=== PATIENT | female | born 1970 | race Caucasian/White ===

== ENCOUNTER → 2021-03-27 11:04 | Outpatient (CLI) | payer OTHER, SELFPAY ==
--- NOTE | ~2021-03-27 | XR_ITS ---
XR hip BI 2V w AP pelvis DATE: 03/27/2021 11:29 INDICATION: Bilateral hip pain TECHNIQUE: AP pelvis. AP and lateral views of each hip COMPARISON: None FINDINGS: Mild osteitis pubis. The pubic symphysis and sacroiliac joints are intact. Hip joint spaces are symmetric and well preserved. No pelvic fracture or bone destruction is detected. No fracture, dislocation, avascular necrosis or bone destruction of either hip. IMPRESSION: Mild osteoarthritis pubis Reviewed, dictated and finalized at location A. EED OIL BOILER IMPRESSION: Mild osteoarthritis pubis
== END ==
PROVIDERS: PCP Emergency Medicine; Visit Provider Emergency Medicine
DX: M16.0 Bilateral primary osteoarthritis of hip (principal)
CPT/HCPCS: 73521

== ENCOUNTER 2025-04-08 08:37 | Emergency (ER) | payer OTHER, SELFPAY ==
--- OUTSIDE RECORDS SUMMARY | 2025-04-08 08:39 | XMS_ITS | Clinical Summary ---
Author Organization [facility] Address [address] [address] Phone Care Team Providers Care Bone Char Operator Name Role Phone Unavailable Primary Care Provider Unavailabl e Allergies No known active allergies Medications cetirizine (ZYRTEC ALLERGY) 10 MG Tablet Take 10 mg by mouth daily. Active VIORELE 0.15-0.02/0.01 MG (13/09) Tablet Take 1 Tab by mouth daily. 04/27/2016 Active Active Problems No known active problems Family History Relation Name Status Comments Father Alive Mother Alive Social History Tobacco Use Types Packs/Day Years Used Date Smoking Tobacco: Never Smokeless Tobacco: Never Alcohol Use Standard Drinks/Week Comments Yes 4 (1 standard drink = 0.6 oz pur e alcohol) Comments No Sex and Gender Information Value Date Recorded Sex Assigned at Female 10/05/2023 8:07 AM CDT Legal Sex Female 7:40 PM CDT Gender Identity Female 10/05/2023 8:07 AM CDT Sexual Orientation Not on file Last Filed Vital Signs Vital Sign Reading Time Taken Comments Blood Pressure 124/82 05/12/2016 4:34 PM GRAIN SPOUTER Pulse 89 05/12/2016 4:34 PM GRAIN SPOUTER Temperature 36.6 C (97.8 F) 05/12/2016 4:34 PM GRAIN SPOUTER Respiratory Rate 18 05/12/2016 4:34 PM GRAIN SPOUTER Oxygen Saturation 99% 05/12/2016 4:34 PM GRAIN SPOUTER Inhaled Oxygen Concentration - - Weight 68.9 kg (152 lb) 05/12/2016 4:34 PM GRAIN SPOUTER Height 167.6 cm (5' 6) 05/12/2016 4:34 PM GRAIN SPOUTER Body Mass Index 24.53 05/12/2016 4:34 PM GRAIN SPOUTER Plan of Treatment Health Maintenance Due Date Last Done Comments Hepatitis C Virus (HCV) Screening 1970 TdaP Immunization 1970 Hepatitis B Immunization (1 of 3 - 19+ 3-dose series) 02/11/1991 HPV/Cotest 02/11/2002 Cervical Cancer Screening (CCS) 08/12/2016 Pap Smear 08/12/2016 08/12/2013 Cologuard 02/11/2017 Colonoscopy 02/11/2017 Colorectal Cancer Screening 02/11/2017 Immunochemical Fecal Occult Blood 02/11/2017 Pneumococcal Immunization (5 0+ years) (1 of 1 - PCV) 02/11/2022 Zoster Immunization (1 of 2) 02/11/2022 Influenza Immunization (#1) 2024 SARS-COV-2 Immunization (1 - season) 2024 Respiratory Syncytial Virus (RSV) Immunization (Adult) (1 - 1-dose 75+ series) 02/11/2047 Discussion re Starting/Frequency of Mammograms Discontinued 12/24/2015, 12/06/2014 Mammogram Discontinued 12/24/2015, 12/06/2014 Human Papillomavirus (HPV) Immunization Aged Out No longer eligible based on patient's age to complete this topic Meningococcal Immunization (ACWY) Aged Out No longer eligible based on patient's age to complete this topic Rotavirus Immunization Aged Out No lo nger eligible based on patient's age to complete this topic Procedures Procedure Name Priority Date/Time Associated Diagnosis Comments SAMMIE SCREENING TAVO W IMPL DIG ITAL W CAD Routine 12/24/2015 PATHOLOGY CYTOLOGY GYNECOLOGICAL ASSISTANT Routine 08/12/2013 from Last 3 Months or Most Recently Relevant to Health Maintenance Results * SAMMIE SCREENING TAVO W IMPL DIGITAL W CAD (12/24/2015) Anatomical Region Laterality Modality breast Bilateral Other us Librado Quintana MD IMG MAMMO ORDERABLES Final Result * PATHOLOGY CYTOLOGY GYNECOLOGICAL ASSISTANT (08/12/2013) Specimen of unknown material (specimen) us Ira Jaffe LOCAL DRIVER, TRAINING ASSISTANT PATHOLOGY/CYTOLOGY ORDERABLES Final Result from Last 3 Months or Most Recently Relevant to Health Maintenance
--- OUTSIDE RECORDS SUMMARY | 2025-04-08 08:39 | XMS_ITS | Clinical Summary ---
Author Organization [facility] Address [address] [place] [address] Care Team Providers Care Bioinformatics Technician Name Role Phone Rg Barry MD Primary Care Provider [phone] Isauro Juarez MD Unavailable [phone] Allergies No known active allergies Medications cetirizine (ZyrTEC) 10 mg tabletIndicatio ns:Allergic Rhinitis Take 1 tablet (10 mg total) by mouth every morning Active acetaminophen (TYLENOL) 325 mg tablet Take 2 tablets (650 mg total) by mouth every 6 (six) hours as needed for pain 60 tablet 4 Active phentermine (ADIPEX-P) 37.5 mg tablet Take 1 tablet (37.5 mg total) by mouth daily before breakfast 5 Active Active Problems Problem Noted Date Diagnosed Date DUB (dysfunctional uterine bleeding) 07/10/2024 Assessment & Plan (11/20/2024 3:16 PM CDT): No more bleeding since she stopped her pills No significant sx We preliminarily discussed HRT She will let me know how it goes. Assessment & Plan (07/10/2024 3:15 PM CDT): Has been controled with ocp To stop and use condoms as she could be menopausal To usg To fsh/lh/tsh If menopausal, will need btl. Well woman exam 07/10/2024 Overview (11/20/2024): Lab: Pap:04/15/2023, WNL Labs does with PCP Aruna: 10/09/2024, BIRADS 1:Negative Colonoscopy:08/04/2021, rpt 5-7 yrs BMD: Assessment & Plan (11/20/2024 3:03 PM CDT): Pap done. RTO 12m. I will send the results to the portal. If she has not heard in a week, to call the office. Assessment & Plan (07/10/2024 3:13 PM CDT): She has this scheduled. Fracture 09/15/2023 Pain associated with left breast implant 024 Assessment & Plan (08/24/2023 4:11 PM CDT): Patient presents today with marked swelling and slight discomfort in the left breast. I do have concern for a ruptured silicone breast implant. We are going to schedule her for left breast diagnostic mammogram and ultrasound. Further plan will be pending these results. She will follow up with my office if her pain worsens or intensifies. She will call with any further questions or concerns. Encounter for screening colonoscopy 03/03/2021 Overview (03/03/2021): Added automatically from request for surgery [id number] Herpes simplex virus (HSV) infection 09/09/2013 Overview (07/31/2016): HSV infection Immunizations Immunization Administration Dates Next Due Moderna SARS-CoV-2 Monovalent Vaccination (12+ Y RS) 06/15/2020 Surgical History Surgery Date Site/Laterality Comments ABDOMINOPLASTY 04/26/2006 - 04/25/2007 CERVICAL BIOPSY W/ LOOP ELECTRODE EXCISION 04/26/1998 - 04/25/1999 SECTION 04/26/1997 - 04/25/1998 SECTION 04/26/1999 - 04/25/2000 AUGMENTATION MAMMAPLASTY 04/26/2010 - 04/25/2011 Bilateral COLONOSCOPY last one 07/2021 Medical History Medical History Date Comments Hx Other Medical dysplasia Hx Other Medical 1997 ; Outc ome: 8 lb(s) 6 oz Female Hx Other Medical 1999 ; Outc ome: 6 lb(s) 11 oz Female Family History Medical History Relation Name Comments Osteoporosis Maternal Grandmother Osteopo rosis; Breast cancer Mother's Sister 1 Cancer, b reast; Breast cancer Mother's Sister 2 Other Sister osteosarcoma; Anesthesia problems Neg Hx Ovarian cancer Neg Hx no change cmt 11/20/24 Thyroid cancer Neg Hx Relation Name Status Comments Maternal Grandmother Mother's Sister 1 Mother's Sister 2 Sister Social History Tobacco Use Types Packs/Day Years Used Date Smoking Tobacco: Never Passive Smoke Exposure: Never Smokeless Tobacco: Never Tobacco Cessation:Counseling Given: Not Answered Alcohol Use Standard Drinks/Week Comments Yes 0 (1 standard drink = 0.6 oz pur e alcohol) Humiliation, Afraid, Rape, and Kick questionnair e Answer Date Recorded Within the last year, have y ou been afraid of your partner or ex-partner? No 11/20/2024 Within the last year, have y ou been humiliated or emotionally abused in other ways by your partner or ex-partner? No Within the last year, have y ou been kicked, hit, slapped, or otherwise physically hurt by your partner or ex-partner? No 11/20/2024 Within the last year, have y ou been raped or forced to have any kind of sexual activity by your partner or ex-partner? No 11/20/2024 AUDIT-C Answer Date Recorded Q1: How often do you have a drink containing alc ohol? 2-3 times a week 11/20/2024 Q2: How many drinks containi ng alcohol do you have on a typical day when you are drinking? 1 or 2 11/20/2024 Q3: How often do you have si x or more drinks on one occasion? Never 11/20/2024 PHQ-2 Answer Date Recorded PHQ-2 Total Score 0 11/20/2024 Personal Safety Answer Date Recorded Have you ever been in or are you currently in a harmful physical or emotional relationship or is someone making you feel afraid or unsafe? Denies 09/17/2023 Comments No Sex and Gender Information Value Date Recorded Sex Assigned at Not on file Legal Sex Female 11:00 AM ORGANIC PREPARATION ANALYST Gender Identity Not on file Sexual Orientation Not on file Obstetrics History Para Term AB IAB SAB Ectopic Multiple Livin g Live Births 4 2 2 2 Date Outcome GA Total Labor Labor/2nd/3rd Weight Sex Type Anes PTL Arpita A1 A5 Name Clin Term Term Last Filed Vital Signs Vital Sign Reading Time Taken Comments Blood Pressure 122/66 11/20/2024 2:36 PM CDT Pulse 79 09/17/2023 1:50 PM CDT Temperature 36.4 C (97.5 F) 09/17/2023 1:00 PM CDT Respiratory Rate 18 09/17/2023 1:50 PM CDT Oxygen Saturation 97% 09/17/2023 1:50 PM CDT Inhaled Oxygen Concentration - - Weight 68.6 kg (151 lb 4.8 oz) 11/20/2024 2:36 P M CDT Height 167.6 cm (5' 6) 11/20/2024 2:36 PM CDT Body Mass Index 24.42 11/20/2024 2:36 PM CDT Plan of Treatment Health Maintenance Due Date Last Done Comments Hepatitis C Screening 1970 DTaP/Tdap/Td Vaccine (1 - Tdap) 02/11/1983 Hepatitis B Screening 02/11/1990 Zoster Vaccine (1 of 2) 02/11/2022 Covid-19 Vaccine ( season) 2024 05/08/2021, 07/15/2020, 06/15/2020 Influenza Vaccine (#1) 2024 Breast Cancer Screening-Mammogram 10/09/2025 10/09/2024, 08/30/2023, 09/29/2022, Additional history exists Cervical Cancer Screening 11/20/20252024, 04/15/2023, 02/27/2021, Additional history exists Depression Screening 11/20/2025 11/20/2024, 04/15/2023, 03/06/2022, Additional history exists Regular Well Visit/Exam 18-64 11/20/2025 11/20/2024, 04/15/2023, 03/06/2022, Additional history exists Colon Cancer Screening-Colonoscopy 08/05/2031 08/04/2021 Pneumococcal vaccine <65 Aged Out No longer eligible based on patient's age to complete this topic Procedures Procedure Name Priority Date/Time Associated Diagnosis Comments PAP AND HPV, REFLEX TO HPV GENOTYPES Routine 11/20/2024 2:50 PM CDT Well woman exam SCREENING MAMMOGRAM BILATERAL W KOLBY W IMPLANTS Schedule Routine, Read Routine (OP Routine) 10/09/2024 10:48 AM CDT Screening mammogram, encounter for COLONOSCOPY 08/04/2021 10:09 AM CDT from Last 3 Months or Most Recently Relevant to Health Maintenance Results * Pap and HPV, reflex to HPV Genotypes (11/20/2024 2:50 PM CDT) Clinical indication Comment [facility] - 01 Comment: NEGATIVE FOR INTRAEPITHELIAL LESION OR MALIGNANCY. THIS SPECIMEN WAS RESCREENED PART OF OUR LCSW PROGRAM. Specimen adequacy: Comment [facility] - 01 Comment:Satisfactory for cynthia luation. No endocervical component is identified. Clinician provided ICD10 Comment [facility] - 01 Comment:Z01.419 Performed by Comment [facility] - 01 Comment:Josef Villatoro, Cytolog ist (ASCP) QC reviewed by Comment [facility] - 01 Comment:Kareem Quinones ytologist (ASCP) . . [facility] - 01 Note: Comment [facility] - 01 Comment: The Pap smear is a screening test designed to aid in the detection of premalignant and malignant conditions of the uterine cervix. It is not a diagnostic procedure and should not be used as the sole means of detecting cervical cancer. Both false-positive and false-negative reports do occur. Test methodology Comment [facility] - 01 Comment: This liquid based ThinPrep(R) pap test was screened with the use of an image guided system. HPV Aptima Negative Negative [facility] 02 Comment: This nucleic acid amplification test detects fourteen high-risk HPV types (16,18,31,33,35,39,45,51,52,56,58,59,66,68) without differentiation. HPV Genotype Reflex Comment [facility] - 01 Comment:Criteria not met, HP V Genotype not performed. Thin prep-Endocervical 11/20/2024 2:50 PM CDT 11/20/2024 Narrative [facility] - 11/23/2024 8:11 AM CDT Performed at: - [facility] [address] [facility] [place] [id number] It Program Manager: Heather Recio MD, Phone: [phone] Performed at: 02 - [facility] [address] [place], [place] [id number] It Program Manager: Heather Recio MD, Phone: [phone] Specimen Comment: [id number] Specimen Comment: No. of containers..01 ThinPrep Vial Sandra Rodriguez MD LAB CYTOLOGY ORDERA BLES Final Result [facility] - 01 [facility] 02 * Screening Mammogram Bilateral W Kolby W Implants (10/09/2024 10:48 AM CDT) Anatomical Region Laterality Modality Breast Bilateral Mammography Impressions 10/09/2024 5:55 PM CDT Bilateral No evidence of malignancy in either breast. OVERALL BI-RADS FINAL ASSESSMENT: 1 - Negative RECOMMENDATION: Recommend bilateral annual screening mammography. Narrative 10/09/2024 5:55 PM CDT EXAMINATION: Screening Mammogram Bilateral W Kolby W Implants: 10/09/2024 COMPARISON: Relevant prior studies available at the time of interpretation were reviewed. TECHNIQUE: Mammography was performed with 2D and digital breast tomosynthesis (DBT) images. CAD was utilized. BREAST PARENCHYMAL COMPOSITION: The breasts are heterogeneously dense, which may obscure small masses. FINDINGS: Bilateral There is no suspicious mass, calcification, or architectural distortion in either breast. There are bilateral retropectoral silicone implants. The presence of implants limits the sensitivity of mammography. Self Screening Mammogram IMG MAMMO PROCEDURES Fi nal Result * COLONOSCOPY (08/04/2021 10:09 AM CDT) Anatomical Region Laterality Modality Other Narrative Procedure Note Matthew Krishnamurthy MD - 08/04/2021 10:09 AM CDT [facility] Patient Name: Stephanie Connell Procedure Date: 08/04/2021 10:09 AM Date of : 1970 Admit Type: Outpatient Age: 51 Gender: Female Attending MD: Matthew Krishnamurthy M.D. Room: [facility] END[facility]COPY ROOM 1 Note Status: Finalized Patient Profile: This is a 51 year old female. No family history of colon cancer. Screening Procedure: Colonoscopy Indications: Screening for colorectal malignant neoplasm, Thisis the patient's first colonoscopy Referring MD: Rg Barry M.D. Providers: Matthew Krishnamurthy M.D. Impression: - One 4 mm polyp in the proximal ascending colon, removed with a jumbo cold forceps. Resected and retrieved. - Unremarkable normal colonoscopy otherwise. - Internal hemorrhoids. Recommendation: - Await pathology results. - Repeat colonoscopy in 5-7 years for screening purposes. - Continue present medications. Medicines: Monitored Anesthesia Care Complications: No immediate complications. Estimated Blood Loss: Estimated blood loss: none. Procedure: Pre-Anesthesia Assessment: - Prior to the procedure, a History and Physicalwas performed, and patient medications and allergieswere reviewed. The patient's tolerance of previous anesthesia was also reviewed. The risks andbenefits of the procedure and the sedation options and risks were discussed with the patient. All questions were answered, and informed consent was obtained. Prior Anticoagulants: The patient has taken noanticoagulant or antiplatelet agents. ASA Grade Assessment: II -A patient with mild systemic disease. After reviewing the risks and benefits, the patient was deemed in satisfactory condition to undergo the procedure. The benefits, risks and alternatives of theprocedure and sedation were discussed and informed consentwas obtained. All questions were answered. Please referto the signed informed consent document in the medical record. The bowel preparation used was Miralax via split dose instruction. The bowel preparation usedwas bisacodyl tablets via split dose instruction. The scope was passed under direct vision. The Pediatric Colonoscope [id number] was introducedthrough the anus and advanced to the the cecum, identifiedby appendiceal orifice and ileocecal valve. Thequality of the bowel preparation was good. Bowel prep was administered using a split dose. Findings: The perianal and digital rectal examinations were normal. The cecum appeared normal. The terminal ileum was normal. A 4 mm polyp was found in the proximal ascending colon. The polyp was semi-sessile. The polyp was removed with a jumbo cold forceps.Resection and retrieval were complete. The rectum, sigmoid colon, descending colon and transverse colon appeared normal. Internal hemorrhoids were found during retroflexion. The hemorrhoids were small. Electronically signed by Matthew Krishnamurthy M.D. Matthew Krishnamurthy M.D. 08/04/2021 11:02:35 AM Number of Addenda: 0 Note Initiated On: 08/04/2021 10:09 AM Procedure Code(s): --- Professional --- 18871, Colonoscopy, flexible; with biopsy, single or multiple Diagnosis Code(s): --- Professional --- Z12.11, Encounter for screening for malignant neoplasm of colon K64.8, Other hemorrhoids D12.2, Benign neoplasm of ascending colon CPT copyright 2020 [employer]. All rights reserved. The codes documented in this report are preliminary and upon punch machine operator reviewmay be revised to meet current compliance requirements. Recognized by the [place] [employer] for promoting quality in endoscopy Matthew Krishnamurthy MD ENDOSCOPY PROCEDURES Final Result from Last 3 Months or Most Recently Relevant to Health Maintenance Insurance [facility]PPO Address: [place] [address] [facility]PPO Address[id number] [place] [address] [facility] H[facility]/PPO Address: [facility] [address] [address] [id number] Advance Directives For more information, please contact: [phone] * Full Code (Latest Code Status on File) Date Activated Date Inactivated Comments 08/04/2021 10:12 AM 08/04/2021 3:55 PM * Full Code Date Activated Date Inactivated Comments 08/04/2021 10:06 AM 08/04/2021 10:12 AM Care Teams Bioinformatics Technician Relationship Specialty Start Date End Date Rg Barry MD PCP - General 12/01/16 Isauro Juarez MD [address] [place] [address] Surgeon Plastic Surgery 08/30/23
--- OUTSIDE RECORDS SUMMARY | 2025-04-08 08:41 | XMS_ITS | Clinical Summary ---
Author Organization [facility] Address [address] [place] [phone] Phone Care Team Providers Care Design Assembler Name Role Phone Rg Barry MD Primary Care Provider [phone] Medications HYDROcodone-wilver taminophen (NORCO) 5-325 mg tabletIndicatio ns:Closed displaced fracture of proximal phalanx of left ring finger, initial encounter Take 1 Tablet by mouth every 4 hours as needed for Pain. Max Daily Amount: 6 Tablets 15 Tablet 09/10/2023 Active Social History Tobacco Use Types Packs/Day Years Used Date Smoking Tobacco: Never Assessed Feeling Safe Answer Date Recorded Are you in a relationship wi th someone who hurts you emotionally and/or physically? No 09/10/2023 Comments Unknown Sex and Gender Information Value Date Recorded Sex Assigned at Not on file Legal Sex Female 2:52 PM CDT Gender Identity Not on file Sexual Orientation Not on file Last Filed Vital Signs Vital Sign Reading Time Taken Comments Blood Pressure 155/88 09/10/2023 3:10 PM CDT Pulse 83 09/10/2023 3:10 PM CDT Temperature 36.5 C (97.7 F) 09/10/2023 3:10 PM CDT Respiratory Rate 19 09/10/2023 3:10 PM CDT Oxygen Saturation 100% 09/10/2023 3:10 PM CDT Inhaled Oxygen Concentration - - Weight 72.6 kg (160 lb) 09/10/2023 3:10 PM CDT Height 167.6 cm (5' 6) 09/10/2023 3:10 PM CDT Body Mass Index 25.82 09/10/2023 3:10 PM CDT Plan of Treatment Health Maintenance Due Date Last Done Comments DTAP/TDAP/TD VACCINES (1 - Tdap) 02/11/1991 HEPATITIS B VACCINES (1 of 3 - 19+ 3-dose series) 02/11/1991 HPV/Cotest (21-29) 02/11/1993 CERVICAL CANCER SCREENING 02/11/2002 HPV/Cotest (30-65) 02/11/2002 PAP SMEAR 02/11/2002 FIT-DNA Q 3 years 02/11/2017 FIT/FOBT Q 1 year 02/11/2017 Flex Sig/CT Colonography Q 5 years 02/11/2017 ZOSTER VACCINE (1 of 2) 02/11/2022 BREAST CANCER SCREENING 08/29/2024 08/30/19, 09/29/2022, 08/07/2021, Additional history exists INFLUENZA VACCINE (#1) 2024 COLORECTAL SCREENING 08/05/2031 08/04/2021, 08/05/19 Colorectal Cancer Screening 08/05/2031 Insurance [employer] [facility] [id number] Care Teams Design Assembler Relationship Specialty Start Date End Date Rg Barry MD [address] [place], [place] [address] [address] PCP - General Family Practice 09/10/23
--- NOTE | 2025-04-08 08:44 | ED.URI ---
HPI - URI/Sore Throat General Chief Complaint: Upper Respiratory Infection Stated Complaint: Cough patient presents to the [facility] with complaints of chest congestion, productive cough, nasal congestion, nasal drainage, scratchy throat fatigue that began about 2 weeks ago. patient noted initially symptoms were minimal and she was just using cough cold medications 1 week ago she started to have thicker drainage and mucus began using an expectorant this does help with symptoms but believe she should feel better by now, also noted occasional wheezing. No known sick contacts. Denies fever, chills, body aches, dizziness, shortness of breath, nausea, vomiting, diarrhea. Related Data Allergies Allergy/AdvReac Type Severity Reaction Status Date / Time No Known Allergies Allergy Unknown Verified 04/08/25 08:39 Review of Systems Constitutional: Constitutional: Reports as per HPI, Denies chills, Reports fatigue, Denies fever(s) and Denies weakness Eyes: Eyes: Reports no additional eye complaints ENT: Reports as per HPI, Denies vertigo, Denies dizziness, Reports nasal congestion and Reports sore throat Comments: Sinus pain Cardiovascular: Cardiovascular: Reports no additional cardiovascular complaints Respiratory: Respiratory: Reports as per HPI, Reports chest congestion, Reports cough, Denies dyspnea and Reports wheezing Gastrointestinal: Gastrointestinal: Reports as per HPI, Denies abdominal pain, Denies diarrhea, Denies nausea and Denies vomiting Genitourinary: Genitourinary: Reports no additional female genitourinary complaints Musculoskeletal: Musculoskeletal: Reports as per HPI, Denies back pain and Denies myalgias Integumentary/Breasts: Skin/Breast: Reports as per HPI, Denies erythema and Denies rash Neurologic: Reports as per HPI, Denies vertigo, Denies dizziness, Reports headache(s), Denies numbness and Denies weakness Psychiatric: Psychiatric: Reports no additional psychiatric complaints Endocrine: Endocrine: Reports no additional endocrine complaints Hematologic/Lymphatic: Hematologic/Lymphatic: Reports no additional hematologic/lymphatic complaints Allergic/Immunologic: Allergic/Immunologic: Reports no additional allergic/immunologic complaints Exam Const: General: healthy appearing and no acute distress Nutritional Appearance: well nourished Orientation/consciousness: patient oriented x3 Limitations: no limitations HENMT: Head: normal to inspection Ears: external ears normal and TM's normal bilaterally Face/Nose/Sinus: Normal external nose present and Normal nares present ( mild erythema and edema noted) Face and sinus: normal facial exam and sinuses nontender Mouth: Yes Normal oral and palatal mucosa present, Yes lip normal and Yes moist mucous membranes Throat: posterior oropharynx abnormal ( mild erythema with no edema or exudate) Neck: Neck: normal visual inspection and no lymphadenopathy Resp: Effort & Inspection: normal respiratory effort Auscultation: rhonchi left upper and left lower and wheezes ( minimal throughout) Cardio: Rhythm: regular rhythm Heart sounds: Murmur heart sound present Skin: General skin exam: normal color Rashes: no rashes Wounds: no wounds Neuro: General: patient oriented x3 Speech: normal speech Gait exam (Neuro): Normal gait present Psych: Mental Status: mental status grossly normal Affect: normal affect Attitude: cooperative Course Course Level of Care: Express Care Visit MDM MDM Narrative Medical decision making narrative: The patient was evaluated by myself in the express care. History is obtained from patient who is an independent historian and physical exam was performed. Available medical records were reviewed at this time. Exam findings show no acute concerns or changes; patient is non-toxic appearing and is in no distress. Patient is appropriate for outpatient treatment and follow-up. I have evaluated and discussed social determinants of health with the patient that could potentially impact subsequent diagnosis and treatment plans. Differential diagnosis and treatment plan were discussed with the patient. Patient agrees with discussion and after shared medical decision making agrees with plan of care. All questions were answered to the patient's satisfaction. Differential Diagnosis Differential Diagnosis: Sinusitis, upper respiratory infection, pharyngitis, strep Medical Records I have reviewed the following patient records and this information was taken into consideration when formulating the assessment and plan.: previous labs, previous ER visits, previous hospitalizations and previous clinic visits Discharge Plan Discharge Clinical Impression: Bronchitis, Sinusitis Patient Disposition: Home Condition: Stable Instructions: Antibiotic Form, Acute Bronchitis (ED), Wheezing (ED) Additional Instructions: You have been diagnosed with bronchitis, this is more commonly a viral illness but given the length of your symptoms we will start an antibiotic. Taking medications to control your symptoms will help you feel better.Bronchitis does occasionally a post viral cough that is dry and hacking in nature that can last 6-8 weeks. Take the antibiotics until they are gone. Ensure to have yogurt daily or a probiotic to help with GI upset and diarrhea that comes commonly with antibiotics. If this is significant stop the antibiotics and call primary care for follow-up. Medication you can take to make you feel better: prednisone as directed. this medication can cause jitteriness or palpitations. If this happens You may stop this medication. albuterol inhaler every 4 hours as needed for cough, shortness of breath, or wheezing. Tessalon Perles/benzonatate for cough. These can be taken 3 times a day as needed. May also use [id number] medications like Mucinex, Sudafed, Flonase, Tylenol, and ibuprofen. If your symptoms worsen or last longer than 7-10 days follow-up with primary care provider or emergency room as needed. Patient Language: Icelandic Prescriptions: New doxycycline monohydrate 100 mg capsule 100 mg PO BID Qty: 20 0RF prednisone 50 mg tablet 50 mg PO DAILY Qty: 5 0RF promethazine-DM 6.25-15 mg/5 mL syrup 5 ml PO Q4-6H PRN (Reason: cough) Qty: 118 0RF albuterol sulfate [Ventolin HFA] 90 mcg/actuation HFA aerosol inhaler 2 puff inhalation QID PRN (Reason: shortness of breath or wheezing) Qty: 8.5 0RF Follow-up/Referrals: Rg Barry MD [Primary Care Provider, [facility]] Time of Disposition: 08:57
[2025-04-08 08:45] VITALS: BP 165/90; PULSE 98; RESP 18; TEMP 36.4; O2SAT 99
== END 2025-04-08 09:00 | disposition home or self-care (01) ==
PROVIDERS: Emergency Provider Nurse Practitioner Family; PCP Emergency Medicine
DX: J40 Bronchitis, not specified as acute or chronic (principal); J32.9 Chronic sinusitis, unspecified
CPT/HCPCS: 99203; G0463

== ENCOUNTER 2025-04-23 16:52 | Emergency (ER) | payer OTHER, SELFPAY ==
--- NOTE | ~2025-04-23 | XR_ITS ---
XR chest 2V HOSTORY: cough x1 month COMPARISON:[ None] FINDINGS: Frontal and lateral views of the chest were obtained. The lungs are clear. The heart size is normal in size. Pulmonary vasculature is unremarkable. Osseous structures are intact. IMPRESSION: No acute lung findings.] [ ] Reviewed, dictated and finalized at location S. SERVICE UTILITY WORKER
--- OUTSIDE RECORDS SUMMARY | 2025-04-23 16:55 | XMS_ITS | Clinical Summary ---
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 Specimen adequacy: Comment [facility] - 01 [...] 8:11 AM CDT Performed at: - [facility] [address] [place] [id number] Remediation Consultant: Heather Recio MD, Phone: [phone] Performed at: 02 - [facility] [address] [place], [place] [id number] Remediation Consultant: Heather Recio MD, Phone: [phone] Specimen Comment: [id number] Specimen Comment: No. of containers..01 ThinPrep Vial Sandra Rodriguez MD LAB CYTOLOGY ORDERA BLES Final Result [facility] - 01 LAB SHARDA 02 * [...] Krishnamurthy MD - 08/04/2021 10:09 AM CDT [facility] Patient Name: Stephanie Connell Procedure Date: 08/04/2021 10:09 AM Date of : 1970 Admit Type: Outpatient Age: 51 Gender: Female Attending MD: Matthew Krishnamurthy M.D. Room: [facility] ENDOSCOPY ROOM 1 Note Status: Finalized Patient [...] under direct vision. The Pediatric Colonoscope [id number] was introducedthrough the anus and advanced to [...] 10:09 AM Procedure Code(s): --- Professional --- 71501, Colonoscopy, flexible; with biopsy, single or multiple Diagnosis Code(s): --- Professional --- Z12.11, Encounter for screening for malignant neoplasm of colon K64.8, Other hemorrhoids D12.2, Benign neoplasm of ascending colon CPT copyright 2020 [employer]. All rights reserved. The codes documented in this report are preliminary and upon display carver reviewmay be revised to meet current compliance requirements. Recognized by the [place] [employer] for promoting quality in endoscopy Matthew Krishnamurthy MD ENDOSCOPY PROCEDURES Final Result from Last 3 Months or Most Recently Relevant to Health Maintenance Insurance [facility] CHOICE PLUS [facility] CHOICE PLUS [facility] CHOICE PLUS [place] [id number] Advance Directives For more information, please contact: [phone] * Full Code (Latest Code Status on File) Date Activated Date Inactivated Comments 08/04/2021 10:12 AM 08/04/2021 3:55 PM * Full Code Date Activated Date Inactivated Comments 08/04/2021 10:06 AM 08/04/2021 10:12 AM Care Teams Requirements Manager Relationship Specialty Start Date End Date Rg Barry MD PCP - General 12/01/16 Isauro Juarez MD [address] [place] [address] Surgeon Plastic Surgery 08/30/23
--- OUTSIDE RECORDS SUMMARY | 2025-04-23 16:55 | XMS_ITS | Clinical Summary ---
Author Organization [facility] Address [address] [address] Phone Care Team Providers Care Wheel Borer Name Role Phone Unavailable Primary Care Provider [...] Comments Blood Pressure 124/82 05/12/2016 4:34 PM HOUSEKEEPER/CUSTODIAN/LAUNDRY WORKER Pulse 89 05/12/2016 4:34 PM HOUSEKEEPER/CUSTODIAN/LAUNDRY WORKER Temperature 36.6 C (97.8 F) 05/12/2016 4:34 PM HOUSEKEEPER/CUSTODIAN/LAUNDRY WORKER Respiratory Rate 18 05/12/2016 4:34 PM HOUSEKEEPER/CUSTODIAN/LAUNDRY WORKER Oxygen Saturation 99% 05/12/2016 4:34 PM HOUSEKEEPER/CUSTODIAN/LAUNDRY WORKER Inhaled Oxygen Concentration - - Weight 68.9 kg (152 lb) 05/12/2016 4:34 PM HOUSEKEEPER/CUSTODIAN/LAUNDRY WORKER Height 167.6 cm (5' 6) 05/12/2016 4:34 PM HOUSEKEEPER/CUSTODIAN/LAUNDRY WORKER Body Mass Index 24.53 05/12/2016 4:34 PM HOUSEKEEPER/CUSTODIAN/LAUNDRY WORKER Plan of Treatment Health Maintenance Due Date [...] Discontinued 12/24/2015, 12/06/2014 Human Papillomavirus (HPV) Immunization (No Doses Required) Completed Meningococcal Immunization (ACWY) Aged Out No longer eligible based on patient's age to complete this topic Rotavirus Immunization Aged Out No lo nger eligible based on patient's age to complete this topic Procedures Procedure Name Priority Date/Time Associated Diagnosis Comments SAMMIE SCREENING TAVO W IMPL DIG ITAL W CAD Routine 12/24/2015 PATHOLOGY CYTOLOGY SISAL PICKER Routine 08/12/2013 from Last 3 Months or Most Recently Relevant to Health Maintenance Results * SAMMIE SCREENING TAVO W IMPL DIGITAL W CAD (12/24/2015) Anatomical Region Laterality Modality breast Bilateral Other us Librado Quintana MD IMG MAMMO ORDERABLES Final Result * PATHOLOGY CYTOLOGY SISAL PICKER (08/12/2013) Specimen of unknown material (specimen) us Ira Jaffe CONFERENCE INTERPRETER, LOCKSTITCH WAISTLINE JOINER PATHOLOGY/CYTOLOGY ORDERABLES Final Result from Last 3 Months or Most Recently Relevant to Health Maintenance
--- OUTSIDE RECORDS SUMMARY | 2025-04-23 16:56 | XMS_ITS | Clinical Summary ---
Author Organization [facility] Address [address] [place] [phone] Phone Care Team Providers Care Correctional Officer Chief Name Role Phone Rg Barry MD Primary Care Provider [phone] Medications HYDROcodone-wilver taminophen (NORCO) 5-325 mg tabletIndicatio [...] 08/04/2021, 08/05/19 Colorectal Cancer Screening 08/05/2031 Insurance [employer] [facility] [id number] Care Teams Correctional Officer Chief Relationship Specialty Start Date End Date Rg Barry MD [address] [place], [place] [address] [place] [address] PCP - General Family Practice 09/10/23
[2025-04-23 17:01] VITALS: BP 158/88; PULSE 92; RESP 16; TEMP 36.4; O2SAT 98
--- NOTE | 2025-04-23 17:53 | ED.URI ---
HPI - URI/Sore Throat General Chief Complaint: Upper Respiratory Infection Stated Complaint: Cough Time Seen by Provider: 04/23/25 17:45 Source: patient and RN notes reviewed Mode of arrival: ambulatory Limitations: no limitations History of Present Illness HPI Narrative: 55-year-old female patient presents today complaining of persistent cough wheezing that is most prominent at night. Patient was seen here at [facility] on 04/08/2025 with a 2 week history cough and cold symptoms, diagnosed with sinusitis and bronchitis and treated with doxycycline, prednisone, albuterol, and cough syrup. States symptoms resolved except for the cough. States cough improved then worsened again 6 days ago. She denies shortness of breath or recent fever. She has been taking Mucinex, Sudafed, and cough drops without much improvement. No history of asthma or COPD. She is a nonsmoker. Related Data Allergies Allergy/AdvReac Type Severity Reaction Status Date / Time No Known Allergies Allergy Unknown Verified 04/23/25 16:56 [facility] Comments At time of signature, I have reviewed and agree with nursing past medical, surgical, social and family history unless otherwise noted. Please see nursing chart for further information. There is no relevant family history pertinent to the presenting complaint Exam Narrative: GENERAL: Well-appearing, well-nourished, and in no acute distress. HEAD: Normocephalic, atraumatic. EYES: EOMI. No redness or drainage. Conjunctivae normal. ENT: Mucous membranes pink and moist. Nares clear. No rhinorrhea. TMs normal bilaterally. Throat normal. Uvula midline. NECK: Normal AROM. Supple. No lymphadenopathy. CHEST: No respiratory distress. Clear to auscultation. HEART: Regular rate and rhythm. No murmur appreciated. EXTREMITIES: Normal range of motion. No edema. SKIN: Warm, dry, no rash. Capillary refill normal. Normal skin turgor. NEURO: No focal deficits. Alert and oriented x3. Gait steady. PSYCH: Normal affect. No signs of depression or anxiety. Course Course Level of Care: [facility] Visit Vital Signs Vital signs: Vital Signs Temperature 97.5 F L 04/23/25 17:01 Pulse Rate 92 04/23/25 17:01 Respiratory Rate 16 04/23/25 17:01 Blood Pressure 158/88 H 04/23/25 17:01 Pulse Oximetry 98 04/23/25 17:01 Oxygen Delivery Room Air 04/23/25 17:01 Temperature 97.5 F L 04/23/25 17:01 Pulse Rate 92 04/23/25 17:01 Respiratory Rate 16 04/23/25 17:01 Blood Pressure 158/88 H 04/23/25 17:01 Pulse Oximetry 98 04/23/25 17:01 Oxygen Delivery Room Air 04/23/25 17:01 Reviewed MDM MDM Narrative Medical decision making narrative: 55-year-old female patient presents today complaining of persistent cough wheezing that is most prominent at night. Patient was seen here at [facility] on 04/08/2025 with a 2 week history cough and cold symptoms, diagnosed with sinusitis and bronchitis and treated with doxycycline, prednisone, albuterol, and cough syrup. States symptoms resolved except for the cough. States cough improved then worsened again 6 days ago. She denies shortness of breath or recent fever. She has been taking Mucinex, Sudafed, and cough drops without much improvement. No history of asthma or COPD. She is a nonsmoker. Normal physical exam. Chest x-ray negative. Patient will be treated with another short burst of prednisone and an albuterol inhaler for her persistent bronchitis. Instructed patient to follow-up with her PCP in 3 days if symptoms are not starting to improve. Patient agrees with plan. Vital signs stable. Anticipatory guidance and ED precautions given. Differential Diagnosis Differential Diagnosis: Bronchitis, post infectious cough, pneumonia Imaging Data Radiologist's impression: ITS Impressions Chest X-Ray 04/23/25 18:02 IMPRESSION: No acute lung findings.] [ ] Critical Care Time Critical Care Time Critical Care Time: No Discharge Plan Discharge Clinical Impression: Bronchitis Patient Disposition: Home Condition: Stable Instructions: Acute Bronchitis (ED) Additional Instructions: Your chest x-ray is negative today. Please take the prednisone and use the albuterol inhaler as prescribed. As discussed, please follow-up with your PCP in 3 days if symptoms are not starting to improve. To the ER immediately if symptoms worsen. Patient Language: Albanian Prescriptions: New prednisone 20 mg tablet 40 mg PO DAILY 5 Days Qty: 10 0RF albuterol sulfate 90 mcg/actuation HFA aerosol inhaler 2 inh inhalation Q4-6H PRN (Reason: shortness of breath or wheezing) Qty: 8.5 0RF No Action doxycycline monohydrate 100 mg capsule 100 mg PO BID Qty: 20 0RF prednisone 50 mg tablet 50 mg PO DAILY Qty: 5 0RF promethazine-DM 6.25-15 mg/5 mL syrup 5 ml PO Q4-6H PRN (Reason: cough) Qty: 118 0RF albuterol sulfate [Ventolin HFA] 90 mcg/actuation HFA aerosol inhaler 2 puff inhalation QID PRN (Reason: shortness of breath or wheezing) Qty: 8.5 0RF Follow-up/Referrals: Rg Barry MD [Primary Care Provider, [facility]] Time of Disposition: 18:28
== END 2025-04-23 18:31 | disposition home or self-care (01) ==
PROVIDERS: Emergency Provider Nurse Practitioner; PCP Emergency Medicine
DX: J20.9 Acute bronchitis, unspecified (principal)
CPT/HCPCS: 71046; 99213; G0463